=== PATIENT | female | born 1995 | race Caucasian/White ===

== ENCOUNTER 2017-11-29 15:09 | Emergency (ER) | payer OTHER ==
[2017-11-29 15:18] VITALS: TEMP 98.2
[2017-11-29] MEDS ORDERED: KETAMINE 200 MG/20 ML VIAL IVP ONE (17:09)
--- NOTE | 2017-11-29 17:09 | EDPHY ---
H & P Stated Complaint: Menstral Cramps Time Seen by Provider: 11/29/17 16:56 HPI/ROS: CHIEF COMPLAINT: Left lower quadrant abdominal pain"bad menstrual cramps" HISTORY OF PRESENT ILLNESS: 22-year-old female generally healthy complaining of 24 hr of left lower quadrant abdominal pain accompanies her menstrual period. No back or flank pain. No nausea or vomiting. No urinary abnormality. No trauma. No bowel movement abnormality. No history of chronic similar REVIEW OF SYSTEMS: A ten point review of systems was performed and is negative with the exception of the items mentioned in the HPI PAST MEDICAL & SURGICAL HISTORY: No pertinent medical or surgical history SOCIAL HISTORY:Nonsmoker [employer] Student PHYSICAL EXAM (Prior to examination, patient consented to physical exam, hands were washed and my usual and customary physical exam procedures followed) 1) GENERAL: Well-developed, well-nourished, alert and oriented. Appears uncomfortable, guarding abdomen 2) HEAD: Normocephalic, atraumatic 3) HEENT: Pupils equal, round, reactive to light bilaterally. Sclera anicteric. 4) NECK: Full range of motion, no meningeal signs. 5) LUNGS: Clear auscultation bilaterally, no wheezes, no rhonchi, no retractions. 6) HEART: Regular rate and rhythm, no murmur, no heave, no gallop. 7) ABDOMEN: guarding left lower quadrant abdomen, no tenderness to palpation negative McBurney's, negative Lopez's, negative Rovsing's, negative peritoneal sign, 8) MUSCULOSKELETAL: Moving all extremities, no focal areas of tenderness, no obvious trauma. No peripheral edema or discoloration. 9) BACK: No CVA tenderness, no midline vertebral tenderness, no fluctuance, no step-off, no obvious trauma, no visual or palpable abnormality. 10) SKIN: No rash, no petechiae. 11) Psychiatric: Patient is oriented X 3, there is no agitation. DIFFERENTIAL DIAGNOSIS: My differential diagnosis includes, but is not limited to, acute appendicitis, acute cholecystitis, bowel obstruction, acute pancreatitis, ovarian torsion, ectopic , gastritis and urinary tract infection. The patient understands that this diagnosis is provisional and can never be 100% accurate. This is a partial list of diagnoses considered. These considerations are based on history, physical exam, past history and reassessment. - Personal History LMP (Females 10-55): Now Current Tetanus Diphtheria and Acellular Pertussis (TDAP): Yes - Medical/Surgical History Hx Asthma: No Hx Chronic Respiratory Disease: No Hx Diabetes: No Hx Cardiac Disease: No Hx Renal Disease: No Hx Cirrhosis: No Hx Alcoholism: No Hx HIV/AIDS: No Hx Splenectomy or Spleen Trauma: No Other PMH: Lumbar puncture, wisdom teeth, Migraines - Social History Smoking Status: Never smoked Constitutional: Initial Vital Signs Temperature (C) 36.8 C 11/29/17 15:16 Heart Rate 117 H 11/29/17 15:16 Respiratory Rate 18 11/29/17 15:16 Blood Pressure 121/80 H 11/29/17 15:16 O2 Sat (%) 95 11/29/17 15:16 O2 Delivery Mode Room Air Allergies/Adverse Reactions: Sulfa (Sulfonamide Antibiotics) Allergy (Verified 01/29/16 11:12) Home Medications: Medication Instructions Recorded Amitriptyline HCl 01/29/16 CeleBREX 01/29/16 Periactin 4 MG (RX) 01/29/16 Singulair 01/29/16 Topamax 01/29/16 Hydrocodone/APAP 5/325 [[place] 1 tab PO Q6 PRN #5 tab 11/29/17 5/325 (RX)] Ibuprofen [Motrin (*)] 800 mg PO Q6 #15 tab 11/29/17 Medical Decision Making - Diagnostics Imaging Results: Imaging Impressions Pelvic/Renal Ultrasound 11/29/17 17:07 Impression: Normal ultrasound pelvis. Findings and recommendations discussed with Emergency Department physicianCuba at 17:48 hour, 11/29/2017. Final report concurs with initial preliminary interpretation. Images reviewed myself ED Course/Re-evaluation: 5:08 p.m.: Will obtain pelvic ultrasound, administer analgesia, re-evaluate. Care of patient under supervision of secondary supervising physician Dr Jaffe with whom I discussed case . 5:50 p.m.: Re-evaluation, discussed her negative imaging results. She has not received her ketamine yet. She remains uncomfortable. 6:28 p.m.: Re-evaluation after ketamine. Complaining of continued pain. Will administer Dilaudid, Zofran and re-evaluate 7:29 p.m.: Re-evaluation. States that her pain had initially decreased but now has returned. Offered further analgesia which she declines. Feels she is able to provide a urine sample 9:41 p.m.: Patient has been observed emergency department for multiple hours. She has been given aggressive IV hydration. She has been unable provide urine sample. The nursing staff obtained a bladder scan showing 144 cc of urine however patient did not feel she could urinate. I informed patient that I am unable to rule out urinary tract infection although she has had no urinary complaints. She would like to be discharged. She is feeling improvement. I re -examined her abdomen at this time which is soft no guarding or rebound, I am unable to elicit any pain, she is smiling, states that she is feeling improved. - Data Points Laboratory Results: Laboratory Results 11/29/17 17:13 11/29/17 17:13 11/29/1718 11/29/17 17:13 17:13 17:13 WBC 5.30 10^3/uL 10^3/uL (3.80-9.50) RBC 4.83 10^6/uL 10^6/uL (4.18-5.33) Hgb 16.0 g/dL g/dL (12.6-16.3) Hct 46.5 % % (38.0-47.0) MCV 96.3 fL fL (81.5-99.8) MCH 33.1 pg pg (27.9-34.1) MCHC 34.4 g/dL g/dL (32.4-36.7) RDW 12.2 % % (11.5-15.2) Plt Count 345 10^3/uL 10^3/uL (150-400) MPV 10.0 fL fL (8.7-11.7) Neut % (Auto) 45.7 % % (39.3-74.2) Lymph % (Auto) 41.5 % % (15.0-45.0) [place] % (Auto) 7.5 % % (4.5-13.0) Eos % (Auto) 4.3 % % (0.6-7.6) Baso % (Auto) 0.8 % % (0.3-1.7) Nucleat RBC Rel Count 0.0 % % (0.0-0.2) Absolute Neuts (auto) 2.42 10^3/uL 10^3/uL (1.70-6.50) Absolute Lymphs (auto) 2.20 10^3/uL 10^3/uL (1.00-3.00) Absolute Monos (auto) 0.40 10^3/uL 10^3/uL (0.30-0.80) Absolute Eos (auto) 0.23 10^3/uL 10^3/uL (0.03-0.40) Absolute Basos (auto) 0.04 10^3/uL 10^3/uL (0.02-0.10) Absolute Nucleated RBC 0.00 10^3/uL 10^3/uL (0-0.01) Immature Gran % 0.2 % % (0.0-1.1) Immature Gran # 0.01 10^3/uL 10^3/uL (0.00-0.10) Sodium 142 mEq/L mEq/L (135-145) Potassium 4.0 mEq/L mEq/L (3.5-5.2) Chloride 105 mEq/L mEq/L (97-110) Carbon Dioxide 22 mEq/l mEq/l (22-31) Anion Gap 15 mEq/L mEq/L (8-16) BUN 12 mg/dL mg/dL (7-23) Creatinine 0.8 mg/dL mg/dL (0.6-1.0) Estimated GFR > 60 Glucose 90 mg/dL mg/dL (70-100) Calcium 10.0 mg/dL mg/dL (8.5-10.4) Beta HCG, Qual NEGATIVE Medications Given: Discontinued Medications Hydromorphone HCl (Dilaudid) 1 mg IVP EDNOW ONE Stop: 11/29/17 18:29 Last Admin: 11/29/17 18:38 Dose: 1 mg Sodium Chloride (Ns) 1,000 mls @ 0 mls/hr IV ONCE ONE PRN Reason: Wide Open Stop: 11/29/17 18:30 Last Admin: 11/29/17 18:37 Dose: 1,000 mls Ketamine HCl (Ketamine) 11.6 mg 0.2 mg/kg (11.6 mg) IVP EDNOW ONE Stop: 11/29/17 17:10 Last Admin: 11/29/17 18:00 Dose: 11.6 mg Ketorolac Tromethamine (Toradol) 15 mg IVP EDNOW ONE Stop: 11/29/17 17:12 Last Admin: 11/29/17 18:02 Dose: Not Given Ondansetron HCl (Zofran) 4 mg IVP EDNOW ONE Stop: 11/29/17 18:29 Last Admin: 11/29/17 18:38 Dose: 4 mg Departure - Departure Disposition: Home, Routine, Self-Care Clinical Impression: Menstrual cramps Condition: Good Instructions: Dysmenorrhea (ED) Additional Instructions: Seek immediate medical attention if you develop new or worsening symptoms, if you develop fevers, chills, inability to tolerate oral intake or any other symptoms that concerns you. Referrals: Frederick Krause MD [Medical Doctor] - 2-3 days, call for appt. 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
[2017-11-29] MEDS ORDERED: KETOROLAC 30 MG/1 ML SDV IVP ONE (17:11)
[2017-11-29 17:19] LABS: PLATELET COUNT 345 10^3/uL (150-400)
[2017-11-29 18:05] VITALS: RESP 16
[2017-11-29] MEDS ORDERED: ONDANSETRON 4 MG/2 ML VIAL IVP ONE (18:28)
[2017-11-29] MEDS ORDERED: HYDROmorphONE/DILAUDID 1 MG/ML INJ IVP ONE (18:28)
[2017-11-29] MEDS ORDERED: NS 1,000 ML IV ONE (18:29)
[2017-11-29] MEDS ORDERED: LORazepam 2 MG/ML INJ IVP ONE (19:29)
[2017-11-29 19:45] VITALS: BP 129/76; O2SAT 96
[2017-11-29 21:52] VITALS: PULSE 100
== END 2017-11-29 21:52 | disposition home or self-care (01) ==
DX: N94.6 Dysmenorrhea, unspecified (principal)
CPT/HCPCS: 96374; J1170; J1885; J2405

== ENCOUNTER 2018-06-29 19:14 | Emergency (ER) | payer OTHER ==
--- NOTE | 2018-06-29 19:21 | EDPHY ---
H & P Stated Complaint: Sore thoat, nausea Time Seen by Provider: 06/29/18 19:21 - Personal History LMP (Females 10-55): 22-28 Days Ago Current Tetanus/Diphtheria Vaccine: Yes Current Tetanus Diphtheria and Acellular Pertussis (TDAP): Yes - Medical/Surgical History Hx Asthma: No Hx Chronic Respiratory Disease: No Hx Diabetes: No Hx Cardiac Disease: No Hx Renal Disease: No Hx Cirrhosis: No Hx Alcoholism: No Hx HIV/AIDS: No Hx Splenectomy or Spleen Trauma: No Other PMH: Lumbar puncture, wisdom teeth, Migraines - Social History Smoking Status: Never smoked Constitutional: Initial Vital Signs Temperature (C) 37.1 C 06/29/18 19:17 Heart Rate 113 H 06/29/18 19:17 Respiratory Rate 18 06/29/18 19:17 Blood Pressure 121/78 H 06/29/18 19:17 O2 Sat (%) 96 06/29/18 19:17 O2 Delivery Mode Room Air Allergies/Adverse Reactions: Sulfa (Sulfonamide Antibiotics) Allergy (Verified 06/29/18 19:15) Home Medications: Medication Instructions Recorded Amitriptyline HCl 01/29/16 Periactin 4 MG (RX) 01/29/16 Singulair 01/29/16 Cephalexin [Keflex (RX)] 500 mg PO TID #30 cap 06/29/18 Ondansetron Odt [Zofran Odt 4 mg 4 mg PO Q4 PRN #10 tab 06/29/18 (RX)] Penicillin VK 06/29/18 Medical Decision Making ED Course/Re-evaluation: CHIEF COMPLAINT: Sore throat, nausea HISTORY OF PRESENT ILLNESS: This patient is a 23 year old female presenting with sore throat and nausea. Her symptoms began seven days ago with sore throat. She endorses cough. No fever , chills, otalgia. Her sore throat has worsened since onset and yesterday, she was unable to eat or drink. She went to [facility] urgent care and received 2L IVF. Today, she has had increasing pain and is unable to talk or swallow due to her discomfort. She also has been nauseous and vomited several times today. No chest pain, shortness of breath, diarrhea, urinary complaints. REVIEW OF SYSTEMS: A comprehensive 10 system review of systems is otherwise negative aside from elements mentioned in the history of present illness and medical decision making. PHYSICAL EXAM: HR, BP, O2 Sat, RR. Temp noted General Appearance: Alert, well hydrated, appropriate, and non-toxic appearing. Head: Atraumatic without scalp tenderness or obvious injury Eyes: Pupils equal, round, reactive to light and accommodation, EOMI, no trauma , no injection. Ears: Clear bilaterally, no perforation, normal landmarks Nose: Atraumatic, no rhinorrhea, clear. Throat: Bilateral tonsil hypertrophy with erythema and exudates. No peritonsillar abscess visualized. Mucus membranes moist. Neck: Supple, 2+ carotid upstroke, nontender, no lymphadenopathy. Respiratory: No retractions, no distress, no wheezes, and no accessory muscle use. Lungs are clear to auscultation bilaterally. Cardiovascular: Regular rate and rhythm, no murmurs, rubs, or gallops. Bilateral carotid, radial, dorsalis pedis, and posterior tibial pulses intact. Good capillary refill all extremities. Gastrointestinal: Abdomen is soft, nontender, non-distended, no masses, no rebound, no guarding, no peritoneal signs. Musculoskeletal: Normal active ROM of all extremities, atraumatic. Neurological: Alert, appropriate, and interactive. The patient has normal DTRs and non-focal cranial nerves, motor, sensory, and cerebellar exam. Skin: No rashes, good turgor, no nodules on palpation. Past medical history: Migraines. Past surgical history: Noncontributory Family history: Noncontributory. Social history: Friend at bedside. Lives in [place]. Student at [employer]. DIFFERENTIAL DIAGNOSIS: The differential diagnosis for the patient's fever included but was not limited to pneumonia, urinary tract infection, viral syndrome, meningitis, and sepsis. MEDICAL DECISION MAKIN23 y/o female presents with seven day history of worsening sore throat. Exam reveals bilateral tonsil hypertrophy with erythema and exudates. Exam consistent with bacterial pharyngitis/tonsillitis. She is unable to tolerate pills or fluids by mouth. Plan to administer 10mg IV Decadron, 4mg Zofran, 1L IV NS, 30mg IV Toradol, 1gm IV Ceftriaxone for symptom relief. Reassessed patient. Plan to discharge home in good condition with prescription for Keflex. Follow up and return precautions discussed. The patient is comfortable with this plan. - Data Points Medications Given: Ceftriaxone Sodium/Dextrose (Rocephin 1 Gm (Premix)) 50 mls @ 100 mls/hr IV EDNOW ONE PRN Reason: Protocol Stop: 06/29/18 19:57 Last Admin: 06/29/18 19:39 Dose: 50 mls Discontinued Medications Dexamethasone (Decadron Injection) 10 mg IVP EDNOW ONE Stop: 06/29/18 19:29 Last Admin: 06/29/18 19:34 Dose: 10 mg Sodium Chloride (Ns) 1,000 mls @ 0 mls/hr IV EDNOW ONE; Wide Open PRN Reason: Protocol Stop: 06/29/18 19:29 Last Admin: 06/29/18 19:32 Dose: 1,000 mls Ketorolac Tromethamine (Toradol) 30 mg IVP EDNOW ONE Stop: 06/29/18 19:29 Last Admin: 06/29/18 19:37 Dose: 30 mg Ondansetron HCl (Zofran) 4 mg IVP EDNOW ONE Stop: 06/29/18 19:29 Last Admin: 06/29/18 19:33 Dose: 4 mg Ondansetron HCl (Zofran Odt 4 Mg Prepack#2) 1 btl TAKEHOME EDNOW ONE Stop: 06/29/18 19:33 Last Admin: 06/29/18 19:50 Dose: 1 btl Departure - Departure Disposition: Home, Routine, Self-Care Clinical Impression: Tonsillitis, Pharyngitis Condition: Fair Instructions: Pharyngitis (ED), Tonsillitis (ED) Additional Instructions: 1. Follow up with your primary care provider. 2. Take Keflex as prescribed. It is important to finish your entire course of antibiotics even if you are feeling better. 3. Use Tylenol and/or ibuprofen as directed for pain. Drink plenty of fluids. Take Zofran as prescribed as needed for nausea. 4. Return to the Emergency Department for high fever, difficulty swallowing, difficulty tolerating liquids, neck pain or stiffness, shortness of breath or other concerns. Referrals: Lana Taylor MD [[facility] Primary Care Provider] - As per Instructions Prescriptions: Cephalexin [Keflex (RX)] 500 mg PO TID #30 cap Ondansetron Odt [Zofran Odt 4 mg (RX)] 4 mg PO Q4 PRN #10 tab PRN Reason: Nausea/Vomiting, Use 1st Report Scribed for: Gatito Cedeno Report Scribed by: Carey Choi Date of Report: 06/29/18 Time of Report: 19:45
[2018-06-29] MEDS ORDERED: NS 1,000 ML IV ONE (19:28)
[2018-06-29] MEDS ORDERED: DEXAMETHASONE 10 MG/ML VIAL IVP ONE (19:28)
[2018-06-29] MEDS ORDERED: KETOROLAC 30 MG/1 ML SDV IVP ONE (19:28)
[2018-06-29] MEDS ORDERED: ONDANSETRON 4 MG/2 ML VIAL IVP ONE (19:28)
[2018-06-29] MEDS ORDERED: ONDANSETRON 4MG PREPACK#2 BTL TAKEHOME ONE (19:32)
[2018-06-29 20:38] VITALS: BP 103/68
== END 2018-06-29 20:38 | disposition home or self-care (01) ==
DX: J03.90 Acute tonsillitis, unspecified (principal)
CPT/HCPCS: 96365; J0696; J1100; J1885; J2405